=== PATIENT | female | born 1995 | race Caucasian/White ===

== ENCOUNTER 2020-06-14 17:17 | Emergency (ER) | payer SELFPAY ==
[~2020-06-14] VITALS: Ht 165.1 cm; Wt 118.3 kg
[~2020-06-14 17:17] MED LIST: LEVO25TA4 PO
--- NOTE | 2020-06-14 17:34 | NUR ---
NO ANSER TIMES ONCE. IN BATHROOM
--- NOTE | 2020-06-14 17:53 | NUR ---
EKG IN TRIAGE
[2020-06-14 18:28] LABS: BASOPHILS % (AUTO) 1 % (0-1); EOSINOPHILS % (AUTO) 8 % (1-7); LYMPHOCYTES % (AUTO) 27 % (22-44); MEAN CORPUSCULAR HEMOGLOBIN 30.9 pg (27.0-34.8); MEAN CORPUSCULAR HGB CONC 33.9 g/dL (32.4-35.8); MEAN PLATELET VOLUME 7.9 fL (7.4-10.4); MONOCYTES % (AUTO) 8 % (2-9); NEUTROPHILS % (AUTO) 57 % (42-75); PLATELET COUNT 254 x10^3/uL (130-400); RED BLOOD COUNT 4.83 x10^6/uL (3.82-5.3); RED CELL DISTRIBUTION WIDTH 13.7 % (9.6-15.2)
[2020-06-14 18:35] LABS: ALANINE AMINOTRANSFERASE 16 U/L (12-78); ALBUMIN 3.8 g/dL (3.4-5.0); ANION GAP 5 mmol/L (5-15); CALCIUM 8.7 mg/dL (8.5-10.1); CHLORIDE 110 mmol/L (98-107); CREATININE 0.77 mg/dL (0.55-1.02)
[2020-06-14 18:39] LABS: ALKALINE PHOSPHATASE 102 U/L (45-117); BILIRUBIN,TOTAL 0.7 mg/dL (0.2-1.0); TOTAL PROTEIN 6.9 g/dL (6.4-8.2); TROPONIN I < 0.015 ng/mL (0.000-0.045)
--- NOTE | 2020-06-14 20:29 | NUR ---
Pt ambulatory to room from [employer] with Archetypes at this time. All labs and radiology results reviewed and assistant grocery completed.
[2020-06-14 21:37] VITALS: BP 114/70
== END 2020-06-14 22:59 | disposition home or self-care (01) ==
LOC: ED 21:40
DX: Z00.8 Encounter for other general examination (principal); F12.90 Cannabis use, unspecified, uncomplicated; R94.31 Abnormal electrocardiogram [ECG] [EKG]
CPT/HCPCS: 36415; 71045; 80053; 84484; 84703; 85025; 93005; 99285